=== PATIENT | female | born 1995 | race American Indian/Alaskan Native ===

== ENCOUNTER 2017-07-30 14:31 | Emergency (ER) | payer OTHER ==
[2017-07-30 14:31] VITALS: BMI 29.9
[2017-07-30 14:52] VITALS: RESP 16; O2SAT 100
--- NOTE | 2017-07-30 15:21 | ED PDOC ---
History of Present Illness History of Present Illness: 21 y/o female with a history of asthma presents to the ED with a asthma flair up. Patient reports symptoms began last night around 6:00 PM. She complains of sneezing, wheezing, and tightness in her chest. She states when she coughs a clear/yellow phlegm comes up. Throughout the night her symptoms worsened causing her to have difficulty sleeping. When she awoke this morning she felt her chest was tighter especially when she is laying down. She reports using her at home medication Albuterol 4 times before going to sleep. She has a nebulizer machine but not the medicine to use it. PMD: Dr. Lange HPI: Influenza Chief Complaint: Cough, Cold, Congestion Chief Complaint (Provider): Asthma History Per: Patient Exam Limitations: no limitations Have you had recent travel within the past 21 days to any of: No Symptoms include: cough, chest pain Sick Contacts (Context): None Past Medical History Reviewed: Historical Data, Nursing Documentation, Vital Signs Vital Signs: Last Vital Signs Temp 98 F 07/30/17 14:50 Pulse 74 07/30/17 14:50 Resp 16 07/30/17 14:50 BP 124/80 07/30/17 14:50 Pulse Ox 100 07/30/17 14:50 - Medical History PMH: Asthma - Surgical History Surgical History: Tonsillectomy - Family History Family History: States: No Known Family Hx - Immunization History Hx Tetanus Toxoid Vaccination: No Hx Influenza Vaccination: No Hx Pneumococcal Vaccination: No - Home Medications Home Medications: Ambulatory Orders Medication Instructions Recorded Cetirizine HCl [Zyrtec] 1 tab PO DAILY PRN #30 capsule 12/11/15 Pseudoephedrine [Sudafed Tab] 2 tab PO Q6H PRN #48 tab 12/11/15 Albuterol/Ipratropium [Duoneb 3 1 ea IH PRN PRN #30 neb 07/30/17 MG/3 Ml-0.5 MG/3 Ml 3 Ml] - Allergies Allergies/Adverse Reactions: Allergies Allergy/AdvReac Type Severity Reaction Status Date / Time No Known Allergies Allergy Verified 12/11/15 16:45 Review of Systems ROS Statement: Except As Marked, All Systems Reviewed And Found Negative ENT: Positive for: Other (sneezing) Cardiovascular: Positive for: Chest Pain (tightness) Respiratory: Positive for: Cough, Sputum (clear/yellow), Wheezing Physical Exam - Reviewed Nursing Documentation Reviewed: Yes Vital Signs Reviewed: Yes - Physical Exam Appears: Positive for: Well, Non-toxic, No Acute Distress Skin: Positive for: Normal Color, Warm, Dry Eye Exam: Positive for: EOMI, Normal appearance, PERRL Cardiovascular/Chest: Positive for: Regular Rate, Rhythm. Negative for: Murmur Respiratory: Positive for: Wheezing (in all four quadrants, lower greater than upper, left lung is greater than right lung). Negative for: Normal Breath Sounds, Respiratory Distress Neurologic/Psych: Positive for: Alert, Oriented (x3) Medical Decision Making Medical Decision Making: Time: 14:50 Impression: Asthma exacerbation versus PNA Plan: * EKG * Chest x-ray * Nebulizer * Albuterol 3 ml INH * Decadron Inj 10 mg IM once EKG results were normal. Patient will be sent home with an Albuterol prescription. Patient instructed to follow-up with her PMD. Chest x-ray results were unremarkable. Scribe Attestation: Documented by Arlen Toledo acting as a scribe Yaquelin Leong PA-C. MD Scribe Attestation: All medical record entries made by the Scribe were at my direction and personally dictated by me. I have reviewed the chart and agree that the record accurately reflects my personal performance of the history, physical exam, medical decision making, and the department course for this patient. I have also personally directed, reviewed, and agree with the discharge instructions and disposition. - ECG ECG: Positive for: Interpreted By Me, Viewed By Me ECG Rhythm: Positive for: Normal QRS, Normal ST Segment, Sinus Rhythm (normal) Interpretation Of ECG: Normal rate and rhythm, normal sinus rhythm, normal p wave inflections, normal EKG O2 Sat by Pulse Oximetry: 100 (RA) Pulse Ox Interpretation: Normal Disposition - Clinical Impression Clinical Impression: Asthma attack - Patient ED Disposition Is Patient to be Admitted: No Doctor Will See Patient In The: Office Counseled Patient/Family Regarding: Diagnosis, Need For Followup, Rx Given - Disposition Referrals: [facility] [Outside] Disposition: Routine/Home Disposition Time: 17:30 Condition: STABLE Prescriptions: Albuterol/Ipratropium [Duoneb 3 MG/3 Ml-0.5 MG/3 Ml 3 Ml] 1 ea IH PRN PRN #30 neb PRN Reason: Shortness Of Breath Instructions: Avoiding Asthma Triggers, Inhalers, Medicines for Asthma Forms: [facility] ([employer]), [employer] ED School/Work Excuse
[2017-07-30] MEDS ORDERED: Albuterol-Ipratrop 3 mg / 0.5 (3 ml) UD INH STA (15:22)
[2017-07-30] MEDS ORDERED: Albuterol-Ipratrop 3 mg / 0.5 (3 ml) UD ONE (15:27)
[2017-07-30] MEDS ORDERED: Dexamethasone 4 mg/1 ml ONE (15:28)
--- NOTE | 2017-07-30 16:14 | RAD ---
HISTORY: r/o pna COMPARISON: No prior. TECHNIQUE: Chest PA and lateral FINDINGS: LUNGS: No active pulmonary disease. PLEURA: No significant pleural effusion identified. No pneumothorax apparent. CARDIOVASCULAR: Normal. OSSEOUS STRUCTURES: No significant abnormalities. VISUALIZED UPPER ABDOMEN: Normal. OTHER FINDINGS: None. IMPRESSION: No active disease.
[2017-07-30 16:42] VITALS: BP 128/74; PULSE 76; TEMP 98.4
== END 2017-07-30 16:43 | disposition home or self-care (01) ==
LOC: H.ER 14:31
DX: J45.909 Unspecified asthma, uncomplicated (principal)
CPT/HCPCS: 71046; 81025; 94640; 96372; 99282; J1100

== ENCOUNTER 2017-08-20 16:26 | Emergency (ER) | payer OTHER ==
[2017-08-20 16:26] VITALS: BMI 29.9
[2017-08-20 16:45] VITALS: BP 118/72; PULSE 88; RESP 18; TEMP 98.6; O2SAT 100
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
== END 2017-08-20 19:40 | disposition home or self-care (01) ==
LOC: H.ER 16:26
DX: S00.83XA Contusion of other part of head, initial encounter (principal); W19.XXXA Unspecified fall, initial encounter; Y93.55 Activity, bike riding; H11.32 Conjunctival hemorrhage, left eye